=== PATIENT | male | born 1995 | race African-American/Black ===

== ENCOUNTER 2016-04-06 10:34 | Emergency (ER) | payer SELFPAY ==
[2015-07-09 07:59] VITALS: BP 151/66
[~2016-04-06] VITALS: Ht 165.1 cm; Wt 63.5 kg
[2016-04-06] MEDS ORDERED: AMOX875T PO (11:43)
[2016-04-06] MEDS ORDERED: HYDR-971 PO (11:43)
[2016-04-06] MEDS ORDERED: NAPR500T8 PO (11:43)
--- NOTE | 2016-04-06 11:44 | PHYS DOC ---
Past Medical History Past Medical History: STD, Other Additional Past Medical Histor: gonorrhea Past Surgical History: No Surgical History Alcohol Use: None Drug Use: Marijuana Adult General Chief Complaint Chief Complaint: DENTAL PROBLEM HPI HPI Patient is a 21 year old male who presents with right lower gum dental abscess that began 3 days ago. Patient states he has tried to get into a dentist office but due to the holiday most of offices are closed. Patient denies any fever or trismus. Review of Systems Review of Systems Constitutional: Denies fever or chills [] Eyes: Denies change in visual acuity, redness, or eye pain [] HENT dental abscess Integument: Denies rash or skin lesions [] Neurologic: Denies headache, focal weakness or sensory changes [] Endocrine: Denies polyuria or polydipsia [] Allergies Allergies Allergies Coded Allergies Type Severity Reaction Last Updated Verified No Known Drug Allergies 03/25/14 No Physical Exam Physical Exam Constitutional: Well developed, well nourished, no acute distress, non-toxic appearance. [] HENT: Normocephalic, atraumatic, bilateral external ears normal, oropharynx moist, no oral exudates, nose normal. [] Right lower gum with small amount of swelling consistent with a dental abscess. There is diffuse erythema throughout the right lower gum with no fluctuance. Teeth #31, 30 have dental caries. Skin: Warm, dry, no erythema, no rash. [] Back: No tenderness, no CVA tenderness. [] Extremities: No tenderness, no cyanosis, no clubbing, ROM intact, no edema. [] Neurologic: Alert and oriented X 3, normal motor function, normal sensory function, no focal deficits noted. [] Psychologic: Affect normal, judgement normal, mood normal. [] Current Patient Data Vital Signs Vital Signs Date Time Temp Pulse Resp B/P Pulse Ox O2 Delivery O2 Flow Rate FiO2 04/06/16 10:44 98.5 69 16 97 Room Air 98.5 EKG EKG [] Radiology/Procedures Radiology/Procedures [] Course & Med Decision Making Course & Med Decision Making Pertinent Labs and Imaging studies reviewed. (See chart for details) Patient has a dental abscess. The abscess has no fluctuance hence not ready to be drained. Discharged with amoxicillin for 10 days, naproxen and Omega 10 tablets. He is to follow-up with his own dentist as soon as he can. Dragon Disclaimer Martin Disclaimer This electronic medical record was generated, in whole or in part, using a voice recognition dictation system. Departure Departure Impression: Primary Impression: Dentalgia Additional Impression: Dental abscess Disposition: HOME, SELF-CARE Condition: STABLE Referrals: NO PCP (PCP) follow up with your dentist as soon as you can Patient Instructions: Dental Abscess, Dental Caries Additional Instructions: You were seen for a dental abscess. Please complete your antibiotics. Follow up with your dentist as soon as you can Scripts Amoxicillin 875 Mg Tablet1 Tab PO BID #20 TAB Prov:RACHEAL BURGESS APRN 04/06/16 Naproxen 500 Mg Tablet.dr1 Tab PO BID #60 TAB Ref 2 Prov:RACHEAL BURGESS APRN 04/06/16 Hydrocodone/Apap 5-325 (Omega 5-325 Tablet)1 Each Tablet1-2 Tab PO Q4-6HRS #10 TAB Prov:RACHEAL BURGESS APRN 04/06/16 Problem Qualifiers RACHEAL BURGESS APRN Apr 06, 2016 11:43
== END 2016-04-06 11:57 | disposition home or self-care (01) ==
LOC: ER 10:34
DX: K04.7 Periapical abscess without sinus (principal); F12.10 Cannabis abuse, uncomplicated
CPT/HCPCS: 99283

== ENCOUNTER 2016-05-05 19:59 | Emergency (ER) | payer SELFPAY ==
[~2016-05-05 19:59] MED LIST: AMOX875T PO; HYDR-971 PO; NAPR500T8 PO
[2016-05-05 20:27] VITALS: BP 153/73
[2016-05-05] MEDS ORDERED: CEFTRIAXONE IM 250 MG VIAL. IM ONE (20:45)
[2016-05-05] MEDS ORDERED: AZITHROMYCIN 250 MG TABLET PO ONE (20:45)
[2016-05-05 20:57] LABS: BILIRUBIN,URINE NEGATIVE (NEG); GLUCOSE,URINE NEGATIVE (NEG); NITRITE,URINE NEGATIVE (NEG); PROTEIN,URINE NEGATIVE (NEG-TRACE)
[2016-05-05 21:16] LABS: BACTERIA,URINE 0 /HPF (0-FEW); RBC,URINE 0 /HPF (0-2); WBC,URINE >40 /HPF (0-4)
--- NOTE | 2016-05-05 21:33 | PHYS DOC ---
Past Medical History Past Medical History: No Pertinent History Additional Past Medical Histor: gonorrhea Past Surgical History: No Surgical History Additional Information: Nonsmoker Alcohol Use: None Drug Use: None Adult General Chief Complaint Chief Complaint: GROIN PAIN HPI HPI Patient is a 21 year old male who presents with dysuria starting today. He's or urinary frequency for a few days. He noticed yellow discharge from his penis today as well. He denies urinary urgency or hematuria. He does not have any abdominal pain, back pain, or testicular pain. He denies nausea, vomiting, or fevers. He has previously had gonorrhea, which was treated. He does not currently have a PCP. Review of Systems Review of Systems Constitutional: Denies fever or chills. [] Eyes: Denies change in visual acuity, redness, or eye pain. [] HENT: Denies ear pain, nasal congestion or sore throat. [] Respiratory: Denies cough or shortness of breath. [] Cardiovascular: Denies chest pain, palpitations or edema. [] GI: Denies abdominal pain, nausea, vomiting, bloody stools or diarrhea. [] : Denies hematuria or testicular pain or swelling. Reports dysuria, urinary frequency, and penile discharge. Musculoskeletal: Denies back pain or joint pain. [] Integument: Denies rash or skin lesions. [] Neurologic: Denies headache, focal weakness or sensory changes. [] Endocrine: Denies polyuria or polydipsia. [] Psych: Denies anxiety or depression. [] All systems reviewed and negative unless otherwise stated in the HPI. Current Medications Current Medications Current Medications Medications (Trade) Dose Ordered Sig/[facility] Start Time Stop Time Status Last Admin Dose Admin Azithromycin (Zithromax) 1,000 mg 1X ONCE 05/05/16 20:45 05/05/16 21:00 DC 05/05/16 21:05 1,000 MG Ceftriaxone Sodium (Rocephin Im) 250 mg 1X ONCE 05/05/16 20:45 05/05/16 21:00 DC 05/05/16 21:06 250 MG Allergies Allergies Allergies Coded Allergies Type Severity Reaction Last Updated Verified No Known Drug Allergies 03/25/14 No Physical Exam Physical Exam Constitutional: Well developed, well nourished, no acute distress, non-toxic appearance. [] HENT: Normocephalic, atraumatic, oropharynx moist. [] Eyes: PERRLA, EOMI, conjunctiva normal, no discharge. [] Neck: Normal range of motion, no tenderness, supple, no stridor. [] Cardiovascular: Heart rate regular rhythm, no murmur. [] Lungs & Thorax: Bilateral breath sounds clear to auscultation without wheezes, rales, or rhonchi. [] Abdomen: Bowel sounds normal, soft, no tenderness, no masses, no pulsatile masses. [] Skin: Warm, dry, no erythema, no rash. [] Back: No midline tenderness, no CVA tenderness. [] Extremities: No tenderness, ROM intact, no edema. Distal pulses equal bilaterally. [] Neurologic: Alert and oriented X 3, normal motor function, normal sensory function, no focal deficits noted. [] Psychologic: Affect normal, judgement normal, mood normal. [] Current Patient Data Vital Signs Vital Signs Date Time Temp Pulse Resp B/P Pulse Ox O2 Delivery O2 Flow Rate FiO2 05/05/16 20:27 98.7 75 18 97 Room Air 98.7 Lab Values Laboratory Tests Test 05/05/16 20:45 Urine Collection Type Unknown Urine Color Yellow Urine Clarity Cloudy Urine pH 7.0 Urine Specific [place] >=1.030 Urine Protein Negativemg/dL (NEG-TRACE) Urine Glucose (UA) Negativemg/dL (NEG) Urine Ketones (Stick) Negativemg/dL (NEG) Urine Blood Negative (NEG) Urine Nitrite Negative (NEG) Urine Bilirubin Negative (NEG) Urine Urobilinogen Dipstick 1.0mg/dL (0.2 mg/dL) Urine Leukocyte Esterase Large (NEG) Urine RBC 0/HPF (0-2) Urine WBC >40/HPF (0-4) Urine Squamous Epithelial Cells None/LPF Urine Bacteria 0/HPF (0-FEW) Urine Mucus Marked/LPF EKG EKG [] Radiology/Procedures Radiology/Procedures [] Course & Med Decision Making Course & Med Decision Making Pertinent Labs and Imaging studies reviewed. (See chart for details) Patient presents with dysuria and penile discharge. His urine does not show any bacteria. He was treated with azithromycin and Rocephin for gonorrhea and chlamydia. Dragon Disclaimer Dragon Disclaimer This electronic medical record was generated, in whole or in part, using a voice recognition dictation system. Departure Departure Impression: Primary Impression: Concern about STD in male without diagnosis Disposition: 01 HOME, SELF-CARE Condition: STABLE Referrals: NO PCP (PCP) Patient Instructions: Dysuria-Brief, Sexually Transmitted Disease, [id number] Additional Instructions: Your urine does not show any infection. You were treated for gonorrhea and chlamydia in the emergency department. We will not have these results for 2-3 days. You will receive a phone call if your test is positive. Please do not have sex for one week after treatment to be sure that you are completely treated. Return to emergency department if you have any new or concerning symptoms. JOSE ROBERTS May 05, 2016 21:34
== END 2016-05-05 21:40 | disposition home or self-care (01) ==
LOC: ER 19:59
DX: Z11.3 Encounter for screening for infections with a predominantly sexual mode of transmission (principal); R30.0 Dysuria; R35.0 Frequency of micturition; R36.9 Urethral discharge, unspecified
CPT/HCPCS: 81001; 87086; 96372; 99284; J0696; Q0144; 87491; 87591

== ENCOUNTER 2016-07-27 11:21 | Emergency (ER) | payer SELFPAY ==
[2016-07-27] MEDS ORDERED: AMOX1TAB61 PO (19:14)
== END 2016-07-27 11:50 | disposition left against medical advice (07) ==
LOC: ER 11:41
DX: T14.8 Other injury of unspecified body region (principal); W50.3XXA Accidental bite by another person, initial encounter; Y93.89 Activity, other specified; Y99.8 Other external cause status; Y92.89 Other specified places as the place of occurrence of the external cause; Z53.21 Procedure and treatment not carried out due to patient leaving prior to being seen by health care provider

== ENCOUNTER 2016-07-27 18:24 | Emergency (ER) | payer SELFPAY ==
[~2016-07-27] VITALS: Ht 165.1 cm; Wt 59.0 kg
[2016-07-27 18:45] VITALS: BP 124/65
[2016-07-27] MEDS ORDERED: AMOX1TAB61 PO (19:14)
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
== END 2016-07-27 19:15 | disposition home or self-care (01) ==
LOC: ER 18:24
DX: S61.052A Open bite of left thumb without damage to nail, initial encounter (principal); Y04.1XXA Assault by human bite, initial encounter; Y93.89 Activity, other specified; Y99.8 Other external cause status; Y92.89 Other specified places as the place of occurrence of the external cause
CPT/HCPCS: 99283